=== PATIENT | male | born 1960 | race African-American/Black ===

== ENCOUNTER 2022-03-17 11:38 | Emergency (ER) | payer OTHER, MEDICAID ==
[~2022-03-17] VITALS: Ht 175.3 cm; Wt 80.0 kg
[2022-03-17 14:17] LABS: BASOPHILS % 0.4 % (0.0-2.0); EOSINOPHILS % 0.1 % (0.0-5.0); HEMATOCRIT. 43.3 % (42.0-52.0); LYMPHOCYTES % 21.6 % (20.0-50.0); MEAN CORPUSCULAR HEMOGLOBIN 30.4 pg (28.0-32.0); MEAN CORPUSCULAR VOLUME 87.7 fL (80.0-94.0); MEAN PLATELET VOLUME 8.5 fl (7.4-10.4); MONOCYTES % 5.4 % (2.0-8.0); NEUTROPHILS % 72.5 % (40.0-76.0); PLATELET 234 x1000/uL (130-400); RED BLOOD CELL COUNT 4.94 mill/uL (4.7-6.1); RED CELL DISTRIBUTION WIDTH 14.1 % (11.6-14.6)
[2022-03-17 14:25] LABS: CHLORIDE 109 mEq/L (98-107)
[2022-03-17 14:37] LABS: CLARITY URINE CLEAR (CLEAR); COLOR URINE YELLOW (YELLOW); KETONES URINE 2+ (NEGATIVE); LEUKOCYTE ESTERASE URINE NEGATIVE (NEGATIVE); NITRITE URINE NEGATIVE (NEGATIVE); OCCULT BLOOD URINE TRACE (NEGATIVE); PH URINE 5.5 (4.5-8.0); PROTEIN URINE 1+ (NEGATIVE); SPECIFIC GRAVITY URINE 1.023 (1.005-1.030)
[2022-03-17 14:48] LABS: ETHANOL BLOOD < 10 mg/dL
[2022-03-17 15:04] LABS: *AMPHETAMINES SCREEN URINE NEGATIVE (NEGATIVE); *BARBITURATES SCREEN URINE NEGATIVE (NEGATIVE); *BENZODIAZEPINES SCREEN URINE NEGATIVE (NEGATIVE); *COCAINE SCREEN URINE NEGATIVE (NEGATIVE); CANNABINOID URINE SCREEN PRESUMTIVE POSITIVE (NEGATIVE); METHADONE URINE SCREEN NEGATIVE (NEGATIVE); OPIATES URINE SCREEN NEGATIVE (NEGATIVE); PHENCYCLIDINE URINE SCREEN NEGATIVE (NEGATIVE)
[2022-03-17] MEDS ORDERED: PAROXETINE HCL 10MG TABLET PO SCH (15:30)
[2022-03-17 20:58] LABS: INR 2.9; PROTHROMBIN TIME 28.9 sec (9.6-11.0)
[2022-03-17] MEDS ORDERED: ARIPIPRAZOLE 5MG TABLET PO SCH (21:00)
[2022-03-17] MEDS ORDERED: WARFARIN SODIUM 5MG TABLET PO SCH (21:15)
[2022-03-17] MEDS ORDERED: WARFARIN SODIUM 3MG TABLET PO SCH (21:45)
[2022-03-18 01:49] VITALS: BP 129/69
== END 2022-03-18 02:18 ==
LOC: ER 13:26
DX: F33.2 Major depressive disorder, recurrent severe without psychotic features (principal); R45.851 Suicidal ideations; I69.954 Hemiplegia and hemiparesis following unspecified cerebrovascular disease affecting left non-dominant side; T74.91XA Unspecified adult maltreatment, confirmed, initial encounter; Z63.8 Other specified problems related to primary support group; Y07.5 Non-family member, perpetrator of maltreatment and neglect; Z20.822 Contact with and (suspected) exposure to COVID-19; F12.90 Cannabis use, unspecified, uncomplicated
CPT/HCPCS: 36415; 80053; 80305; 80320; 81003; 85025; 85610; 87426; 99285; C9803; G0480

== ENCOUNTER 2025-03-27 22:05 | Emergency (ER) | payer OTHER, MEDICAID ==
[~2025-03-27] VITALS: Ht 177.8 cm; Wt 82.0 kg
[~2025-03-27 22:05] MED LIST: ASPI-1160 PO; ATOR-2 PO; CARB15DR EACHEYE; CARV3.1242 PO; ESCI-7 PO; ISOS10TA95 PO; MENT1ADH19 TP; POLY17PO43 PO; PRAZ1CAP5 MT; TICA90TA PO; TOPUD PO
[2025-03-27 22:12] VITALS: O2SAT 100
[2025-03-28 00:24] LABS: BASOPHILS % 0.5 % (0.0-2.0); EOSINOPHILS % 1.0 % (0.0-5.0); HEMATOCRIT. 38.3 % (42.0-52.0); HEMOGLOBIN. 13.1 g/dL (14.0-18.0); LYMPHOCYTES % 29.1 % (20.0-50.0); MEAN PLATELET VOLUME 7.6 fl (7.4-10.4); MONOCYTES % 8.3 % (2.0-8.0); NEUTROPHILS % 61.1 % (40.0-76.0); PLATELET 311 x1000/uL (130-400); RED BLOOD CELL COUNT 4.18 mill/uL (4.7-6.1); RED CELL DISTRIBUTION WIDTH 13.9 % (11.6-14.6)
[2025-03-28 00:41] LABS: TROPONIN I HIGH SENSITIVITY 19 ng/L (3.0-53)
[2025-03-28 00:42] LABS: CREATININE 1.2 mg/dL (0.6-1.3)
[2025-03-28 00:43] LABS: PROTEIN TOTAL 7.0 g/dL (6.0-8.3); UREA NITROGEN BLOOD 29 mg/dL (9-23)
[2025-03-28 00:44] LABS: ASPARTATE AMINOTRANSFERASE 21 IU/L (<34)
[2025-03-28 00:45] LABS: BILIRUBIN DIRECT 0.2 mg/dL (<=3.0); BILIRUBIN TOTAL 0.7 mg/dL (0.1-1.0)
[2025-03-28 04:26] VITALS: TEMP 36.5
[2025-03-28 05:18] VITALS: BP 122/81; PULSE 69; RESP 20; O2SAT 100
== END 2025-03-28 05:35 | disposition home or self-care (01) ==
LOC: ER 22:05
DX: F41.9 Anxiety disorder, unspecified (principal); I21.9 Acute myocardial infarction, unspecified; R06.02 Shortness of breath; I69.30 Unspecified sequelae of cerebral infarction; Z79.01 Long term (current) use of anticoagulants; Z79.82 Long term (current) use of aspirin; Z79.899 Other long term (current) drug therapy
CPT/HCPCS: 36415; 71045; 80048; 80076; 83735; 83880; 84484; 85025; 93005; 99285